=== PATIENT | male | born 1960 | race Caucasian/White ===

== ENCOUNTER 2018-12-19 12:01 | Day surgery (SDC) | payer OTHER, SELFPAY ==
--- NOTE | 2018-12-19 | PATH_ITS ---
[facility] Accession Number: [id number] . 01 Material submitted: . PART A: colon - POLYP AT 70, SPLENIC FLEXURE PART B: colon - POLYP AT 20, SIGMOID . 02 Diagnosis: A. Polyp at 70 cm, Splenic Flexure: Tubular adenoma; negative for high-grade dysplasia. . B. Polyp at 20 cm, Sigmoid: Tubular adenoma; negative for high-grade dysplasia. [facility]/12/22/2018 . 02 Electronically signed: . Saskia Camp MD, Pathologist NPI- [id number] . 01 Gross description: . Part A: POLYP AT 70, SPLENIC FLEXURE: Received in formalin is 1 fragment(s) of chris, soft tissue measuring 0.5 x 0.3 x 0.3 cm submitted entirely in 1 cassette(s) Part B: POLYP AT 20, SIGMOID: Received in formalin is 1 fragment(s) of chris, soft tissue measuring 1.0 x 0.6 x 0.7 cm which is inked, bisected and submitted entirely in 1 cassette(s) /CKI /CKI . 02 Pathologist provided ICD-10: K63.5 . 02 CPT . 097490, [id number] Performed at: 01 [facility] [address], [place], [place] [id number] MD Velasquez Redd MD Phone: [phone] Performed at: 02 [facility] [address] [place], [place] [id number] MD Tania Amador MD Phone: [phone]
[2018-12-19] MEDS: SODIUM CHLORIDE 0.9% 1,000 ML 200 ML IV (12:15)
[2018-12-19 12:16] VITALS: BP 136/85; PULSE 60; RESP 15; TEMP 36.6; O2SAT 96; BMI 29.2
--- NOTE | 2018-12-19 12:55 | PM.HP.1 ---
History of Present Illness Date Patient Seen: 12/19/18 Time Patient Seen: 12:55 Chief complaint: [id number] Narrative: Patient here for his 1st screening colonoscopy is asymptomatic with no melena or hematochezia has no abdominal pain. Patient History Social History household members: spouse Family & Social History Social History: household members spouse Meds Home Medications Medication Instructions Recorded Confirmed Type Lipitor 10 mg DAILY 12/19/18 12/19/18 History Prilosec OTC 20 mg DAILY 12/19/18 12/19/18 History Allergies Allergy/AdvReac Type Severity Reaction Status Date / Time No Known Drug Allergies Allergy Verified 12/19/18 12:15 Review of Systems Review of Systems All systems reviewed & are unremarkable except as noted in HPI and below Exam Vital Signs (past 8 hours): - 12/19/18 12:16 Temperature 97.9 F Pulse Rate 60 Respiratory Rate 15 Blood Pressure 136/85 Pulse Oximetry 96 Oxygen Delivery Method Room Air Narrative Exam Narrative: Patient is alert and oriented vital signs stable Lungs are clear with no rales or wheezes Heart regular rhythm no murmur Abdomen soft nontender no masses Rectal will be done at colonoscopy Assessment & Plan Assessment & Plan narrative: Patient is here for his 1st screening colonoscopy is asymptomatic he understands the nature of the procedure the risks of bleeding and perforation and agrees. He has no questions unanswered.
[2018-12-19] MEDS: fentaNYL 250 MCG/5 ML INJ IV (13:21)
[2018-12-19] MEDS: MIDAZOLAM 5 MG/5 ML VIAL IV (13:24)
--- NOTE | 2018-12-19 13:29 | PM.OP.ENDO ---
Operative Date/Time/Diagnoses Date of procedure: 12/19/18 Time of procedure: 13:29 Pre-op diagnosis: Screening colonoscopy Post-op diagnosis: other (Two polyps identified and removed 1 at 20 cm 1 at 70 cm) Procedure & Clinicians Study performed: Total colonoscopy to the cecum polypectomy x2 Same procedure as scheduled: Yes Surgeon: Noble Chambers Procedure Notes SCOAP/Timeout: Was done Procedure in detail: Patient was properly identified during surgical pause given a total of 5 mg of Versed and 200 micro g of fentanyl throughout the procedure which was very well tolerated. The flexible fiberoptic colonoscope was inserted transanally to the cecum. Patient has mild turenr diverticulosis. He also had 2 polyps 1 at 20 cm which was on a stalk and removed with a hot snare and retrieved. The other was a smaller polyp approximately 5 mm in diameter at 70 cm splenic flexure this was removed with cold forceps and submitted also there was no bleeding after the polypectomies the procedure was well tolerated Scope withdrawal time: 10 Sedation minutes: 20 Findings: polyp Specimen(s): other (Two polyps were sent 20 cm and 70 cm) Complications: none Recommendations: Colonscopy in 3 years Disposition: PACU
--- NOTE | 2018-12-19 13:32 | P.OP.ENDO_ITS ---
Operative Date/Time/Diagnoses Date of procedure: 12/19/18 Time of procedure: 13:29 Pre-op diagnosis: Screening colonoscopy Post-op diagnosis: other (Two polyps identified and removed 1 at 20 cm 1 at 70 cm) Procedure & Clinicians Study performed: Total colonoscopy to the cecum polypectomy x2 Same procedure as scheduled: Yes Surgeon: Noble Chambers Procedure Notes SCOAP/Timeout: Was done Procedure in detail: Patient was properly identified during surgical pause given a total of 5 mg of Versed and 200 micro g of fentanyl throughout the procedure which was very well tolerated. The flexible fiberoptic colonoscope was inserted transanally to the cecum. Patient has mild turner diverticulosis. He also had 2 polyps 1 at 20 cm which was on a stalk and removed with a hot snare and retrieved. The other was a smaller polyp approximately 5 mm in diameter at 70 cm splenic flexure this was removed with cold forceps and submitted also there was no bleeding after the polypectomies the procedure was well tolerated Scope withdrawal time: 10 Sedation minutes: 20 Findings: polyp Specimen(s): other (Two polyps were sent 20 cm and 70 cm) Complications: none Recommendations: Colonscopy in 3 years Disposition: PACU
[2018-12-19 13:35] VITALS: BP 123/81; PULSE 57; RESP 15; TEMP 36.8; O2SAT 97
--- NOTE | 2018-12-19 13:48 | SUR.PHASEII ---
Pt arrived from ENDO directly to phase II. Pt awake and alert. Denied pain. Abd soft. Spouse brought to bedside.
[2018-12-19 13:51] VITALS: BP 118/78; PULSE 52; RESP 12; TEMP 36.3; O2SAT 97
== END 2018-12-19 14:04 | disposition home or self-care (01) ==
PROVIDERS: PCP Student in an Organized Health Care Education/Training Program; Visit Provider Surgery
PROC: 0DJD8ZZ Inspection of Lower Intestinal Tract, Via Natural or Artificial Opening Endoscopic (ICD-10-PCS; CPT 45378; principal; 2018-12-19 13:00)
DX: Z12.11 Encounter for screening for malignant neoplasm of colon (principal); D12.3 Benign neoplasm of transverse colon; D12.5 Benign neoplasm of sigmoid colon; K57.30 Diverticulosis of large intestine without perforation or abscess without bleeding
CPT/HCPCS: 45385; 45380; 99152; J2250; J3010

== ENCOUNTER → 2020-08-17 17:10 | Outpatient (CLI) | payer OTHER, SELFPAY ==
[2020-08-17] MEDS: COVID-19 VACC #1, MRNA(MOD) 100 MCG/0.5 ML VIAL IM (17:23)
== END ==
PROVIDERS: PCP Student in an Organized Health Care Education/Training Program; Visit Provider Internal Medicine
DX: Z23 Encounter for immunization (principal)
CPT/HCPCS: 0011A; 91301

== ENCOUNTER → 2020-09-14 15:30 | Outpatient (CLI) | payer OTHER, SELFPAY ==
[2020-09-14] MEDS: COVID-19 VACC #2, MRNA(MOD) 100 MCG/0.5 ML VIAL IM (15:36)
== END ==
PROVIDERS: PCP Student in an Organized Health Care Education/Training Program; Visit Provider Internal Medicine
DX: Z23 Encounter for immunization (principal)
CPT/HCPCS: 0012A; 91301

== ENCOUNTER → 2022-04-16 10:00 | Outpatient (CLI) | payer OTHER, SELFPAY ==
[2022-04-16 13:41] LABS: Hemoglobin 14.3 g/dL (13.5-17.5); Mean Corpuscular Hemoglobin 31.5 PG (26-34); Mean Corpuscular Volume 92.7 fL (80-100); Platelet Count 283 X10^3/uL (150-400); Red Blood Cell Count 4.53 X10^6/uL (4.5-5.9); Red Cell Distribution Width 12.3 % (11.6-14.8); White Blood Cell Count 6.3 X10^3/uL (4.5-11.0)
[2022-04-16 16:52] LABS: HEMOLYSIS < 15 (0-50)
[2022-04-16 17:01] LABS: Alanine Aminotransferase 28 IU/L (<50); Albumin 4.5 g/dL (3.5-5.0); Albumin Globulin Ratio 1.5 (1.0-2.8); Alkaline Phosphatase 61 U/L (38-126); Aspartate Aminotransferase 21 IU/L (17-59); BUN Creatinine Ratio 14.1 (6-22); Bilirubin Total 0.7 mg/dL (0.2-1.3); Blood Urea Nitrogen 11 mg/dL (9-20); Calcium 9.2 mg/dL (8.4-10.2); Carbon Dioxide 25 mmol/L (22-32); Chloride 102 mmol/L (98-107); Cholesterol 156 mg/dL (140-199); Estimated Glomerular Filt Rate > 60 mL/min (>60); Globulin 3.1 g/dL (1.7-4.1); Glucose 101 mg/dL (80-110); HDL Cholesterol 52 mg/dL (40-60); LDL Cholesterol Calculated 87 mg/dL (<100); Potassium 4.1 mmol/L (3.4-5.1); Sodium 139 mmol/L (137-145); Total Protein 7.6 g/dL (6.3-8.2); Triglycerides 85 mg/dL (35-150)
[2022-04-17 16:28] LABS: Prostate Specific Antigen 0.836 ng/mL (0.10-4.00)
== END ==
PROVIDERS: PCP Internal Medicine; Referring Provider Internal Medicine; Visit Provider Internal Medicine
DX: E78.2 Mixed hyperlipidemia (principal); K21.9 Gastro-esophageal reflux disease without esophagitis; Z00.00 Encounter for general adult medical examination without abnormal findings
CPT/HCPCS: 36415; 80053; 80061; 84153; 84443; 85027

== ENCOUNTER 2022-07-24 19:05 | Emergency (ER) | payer OTHER, SELFPAY ==
--- NOTE | 2022-07-24 20:59 | PC.NURSE ---
RE: Delay in triage. After multiple calls, walks through waiting area to find pt to triage upon pt arrival, pt went to registration to make himself known.
[2022-07-24 21:04] VITALS: BP 190/92; PULSE 78; RESP 18; TEMP 36.4; O2SAT 98; BMI 31.7
--- NOTE | 2022-07-24 21:06 | DI.RAD.S_ITS ---
PROCEDURE: XR FINGER LT MIN 2V INDICATIONS: finger vs Ax TECHNIQUE: AP hand, 2 views of the 3rd digit acquired. COMPARISON: [facility], [place], XR FINGER(S) LT 2VW, 07/13/2016, 14:20. FINDINGS: Bones: There is a suspected minimally displaced fracture at the base of the 3rd middle phalanx. Prior amputation of the distal 3rd digit is redemonstrated. There is also deformity of the 2nd distal phalanx consistent sequelae of prior trauma. A lucency within the radial aspect of the base of the 2nd proximal phalanx is suggestive of a bony erosion. Soft tissues: There is soft tissue lacerations involving the 2nd and 3rd digits. No radiopaque foreign bodies. IMPRESSION: 1. Suspected minimally displaced fracture of the base of the 3rd middle phalanx. 2. Prior distal amputation of the distal 3rd digit and posttraumatic changes of the distal 2nd digit redemonstrated. 3. Possible small erosion at the base of the 2nd proximal phalanx. Dictated by: Velasquez Diaz M.D. on 07/24/2022 at 21:48 Approved by: Velasquez Diaz M.D. on 07/24/2022 at 21:55
[2022-07-24] MEDS: TET,DIPH,PERTUSS(ACELL),VAC/PF 0.5 ML SYRINGE IM (21:31)
[2022-07-24] MEDS: HYDROCODONE/ACET 5/325 TABLET 1 TAB PO (23:06)
--- NOTE | 2022-07-25 01:04 | ED_ITS ---
HPI - Extremity Injury (Upper) General Chief Complaint: Extremity Injury, Upper Stated Complaint: lt middle finger cut with axe Time Seen by Provider: 07/25/22 00:52 Source: patient Mode of arrival: Ambulatory History of Present Illness HPI narrative: Patient is a 61-year-old male who presents with left middle finger laceration. He was chopping wood for the fire with an Axe, head of the act fell off and he cut his finger. He previously cut finger with a table saw multiple years ago. He is right-hand dominant. He is not inhalation medication. Denies numbness tingling or weakness. Related Data Home Medications Medication Instructions Recorded Confirmed ibuprofen 200 mg tablet 400 mg PO QID PRN pain 04/16/22 04/16/22 Previous Rx's Medication Instructions Recorded atorvastatin 10 mg tablet 10 mg PO DAILY #90 tabs 04/16/22 omeprazole 20 mg capsule,delayed 20 mg PO DAILY #90 caps 04/16/22 release hydrocodone 5 mg-acetaminophen 325 1 tab PO Q6H PRN pain #10 tabs 07/25/22 mg tablet Allergies Allergy/AdvReac Type Severity Reaction Status Date / Time No Known Drug Allergies Allergy Verified 04/16/22 07:43 Review of Systems Review of Systems ROS Unobtainable: All systems reviewed & are unremarkable except as noted in HPI and below Patient History Medical History (Updated 07/25/22 @ 02:07 by Sandy Ordaz DO) Asymptomatic varicose veins GERD without esophagitis History of colonic polyps Mixed hyperlipidemia Obesity (BMI 30.0-34.9) Plantar fasciitis 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 CARDIOVASCULAR: peripheral pulses in tact, cap refill <2 sec RESPIRATORY: No respiratory distress, speaks in full sentences without difficulty EXTREMITIES: Normal range of motion, no clubbing or edema. Neurovascularly intact NEUROLOGICAL: Cranial nerves II through XII grossly intact. Normal gait and speech. SKIN: Left middle finger laceration 7 cm flap like laceration dorsal side, 2 cm laceration palmar side Procedures Laceration Repair Laceration 1: Site: hand (middle finger dorsal) Side (If applicable): left Size (cm): 7 Description: linear Depth: simple, single layer Local Anesthetic: lidocaine 1% Amount of anesthesia used (mL): 5 Pre-repair: wound explored, irrigated extensively and deep structures intact Skin layer closed with: nylon Skin layer suture size: 5-0 Number of sutures: 8 Technique: simple, interrupted Subcutaneous layer closed with: vicryl Subcutaneous layer suture size: 5-0 Number of sutures: 1 Technique: simple, interrupted Laceration 2: Site: hand (middle finger hawthoren) Side (If applicable): left Size (cm): 2 Description: linear Depth: simple, single layer Local Anesthetic: lidocaine 1% Amount of anesthesia used (mL): 4 Pre-repair: wound explored, irrigated extensively and deep structures intact Skin layer closed with: nylon Skin layer suture size: 5-0 Number of sutures: 5 Technique: simple, interrupted Course Orders Ordered: Discontinued Medications Hydrocodone Bitart/Acetaminophen (Hydrocodone/Acet 5/325 Tablet) 1 tab PO NOW ONE Stop: 07/24/22 23:03 Last Admin: 07/24/22 23:06 Dose: 1 tab Documented By: OMAR Hydrocodone Bitart/Acetaminophen (Hydrocodone/Acet 5/325 Prepack) 1 bottle MISC SEEINSTR ONE Stop: 07/25/22 02:09 Last Admin: 07/25/22 02:13 Dose: 1 bottle Documented By: OMAR Diphtheria/Tetanus/Acell Pertussis (Tet,Diph,Pertuss(Acell),Vac/Pf 0.5 Ml Syringe) 0.5 ml IM .ONCE ONE Stop: 07/24/22 21:18 Last Admin: 07/24/22 21:31 Dose: 0.5 ml Documented By: OMAR Lidocaine HCl (Lidocaine 2% Inj Mdv 20ml) 1 ml SUBCUT NOW ONE Stop: 07/25/22 01:05 Last Admin: 07/25/22 01:10 Dose: Not Given Documented By: OMAR Lidocaine HCl (Lidocaine 2% Inj Sdv 5ml) 5 ml INJ INTRA-OP ONE Stop: 07/25/22 01:09 Last Admin: 07/25/22 01:11 Dose: 5 ml Documented By: OMAR Lidocaine HCl (Lidocaine 2% Inj Sdv 5ml) 5 ml INJ INTRA-OP ONE Stop: 07/25/22 01:37 Last Admin: 07/25/22 02:13 Dose: 5 ml Documented By: OMAR Vital Signs Vital signs: Vital Signs - 8 hr 07/25/22 02:19 Pulse Rate 76 Respiratory Rate 18 Blood Pressure 182/88 H Pulse Oximetry 98 Oxygen Delivery Method Room Air MDM - Extremity Injury (Upper) Imaging Data Extremity x-ray #1: Radiologist's Impression: PROCEDURE:? XR FINGER LT MIN 2V ? INDICATIONS:? finger vs Ax ? TECHNIQUE:? AP hand, 2 views of the 3rd digit acquired.? ? COMPARISON:? [facility] [place], [place], XR FINGER(S) LT 2VW, 07/13/2016, 14:20. ? FINDINGS:? ? Bones:? There is a suspected minimally displaced fracture at the base of the 3rd middle phalanx.? Prior amputation of the distal 3rd digit is redemonstrated.? There is also deformity of the 2nd distal phalanx consistent sequelae of prior trauma.? A lucency within the radial aspect of the base of the 2nd proximal phalanx is suggestive of a bony erosion. ? Soft tissues:? There is soft tissue lacerations involving the 2nd and 3rd digits.? No radiopaque foreign bodies. ? IMPRESSION:? ? 1. Suspected minimally displaced fracture of the base of the 3rd middle phalanx. ? 2. Prior distal amputation of the distal 3rd digit and posttraumatic changes of the distal 2nd digit redemonstrated. ? 3. Possible small erosion at the base of the 2nd proximal phalanx. ? ? Dictated by: Velasquez Diaz M.D. on 07/24/2022 at 21:48 ? ? Approved by: Velasquez Diaz M.D. on 07/24/2022 at 21: MDM Narrative Medical decision making narrative: 61-year-old male who presents with left middle finger laceration secondary to Axe. He is actually found have 2 lacerations 1 on each side of the finger. They are both easily sutured. Patient tolerated procedure well. X-ray was suggestive of minimally displaced fracture at middle phalanx. Discharge Plan Departure Patient Disposition: Home Clinical Impression: Laceration of left middle finger Instructions: DI for Laceration Repair -- Complex Suture Activity Restrictions/Additional Instructions: *You have been diagnosed with left middle finger laceration, possible fracture as well *What to do: Keep finger clean and dry with soap and water may apply antibiotic ointment 1-2 times daily. Have sutures removed in about 7 days *Continue to take medications as directed [place] 1 tablet every 6 hours if needed for severe pain *Follow up with your primary care provider in 2-3 days or call [phone] *Return to ER if you should have increasing pain swelling redness or any new, worsening or concerning symptoms CONTROLLED SUBSTANCE DISCHARGE (Narcotoic/benzodiazepine/Flexeril/Phenergan) 1. You have been prescribed narcotic medications, it does have acetaminophen/Tylenol/paracetamol in it, DO NOT TAKE MORE THAN 4,00mg in 24 hours of Tylenol. TRAMADOL DOES NOT CONTAIN TYLENOL 2. Please understand that we cannot provide further refills of narcotics, benzodiazepines or controlled substances through the ED and her pain management will need to be through your provider. 3. While on these medications you cannot drive or operate heavy machinery. 4. You cannot sign legal documents or perform any duties such as this. 5. As long as you're taking opiate pain medications he should also be taking a stool softener such as Colace, Dulcolax, MiraLAX or prune juice, to help avoid constipation. Prescriptions: New hydrocodone-acetaminophen 5-325 mg tablet 1 tab PO Q6H PRN (Reason: pain) Qty: 10 0RF No Action ibuprofen 200 mg tablet 400 mg PO QID PRN (Reason: pain) atorvastatin 10 mg tablet 10 mg PO DAILY Qty: 90 3RF omeprazole 20 mg capsule,delayed release(DR/EC) 20 mg PO DAILY Qty: 90 3RF Referrals: Moses Quezada MD [Primary Care Provider] - Stand Alone Forms: Patient Portal/API
[2022-07-25] MEDS: LIDOCAINE 2% INJ SDV 5ML 5 ML INJ ×2 (01:11→02:13)
[2022-07-25] MEDS: HYDROCODONE/ACET 5/325 PREPACK 1 BOTTLE MISC (02:13)
--- NOTE | 2022-07-25 02:17 | PC.NURSE ---
finger dressed with xeroform, dia and splint applied
[2022-07-25 02:19] VITALS: BP 182/88; PULSE 76; RESP 18; O2SAT 98
== END 2022-07-25 02:20 | disposition home or self-care (01) ==
PROVIDERS: Emergency Provider Emergency Medicine; PCP Internal Medicine
DX: S61.213A Laceration without foreign body of left middle finger without damage to nail, initial encounter (principal); W45.8XXA Other foreign body or object entering through skin, initial encounter; Z23 Encounter for immunization
CPT/HCPCS: 12004; 73140; 90471; 99283; 99284; 90715

== ENCOUNTER → 2022-08-21 10:24 | Outpatient (CLI) | payer OTHER, SELFPAY ==
[2022-08-21 11:26] LABS: Add Manual Diff / Slide Review NO; Basophils Absolute Auto 100 /uL (0-100); Basophils Percent Auto 0.8 % (0-2); Eosinophils Absolute Auto 200 /uL (0-450); Eosinophils Percent Auto 2.2 % (2-4); Hematocrit 41.1 % (41-53); Lymphocytes Absolute Auto 1500 /uL (1100-4500); Lymphocytes Percent Auto 21.4 % (25-40); Mean Corpuscular HGB Conc 34.1 % (30-36); Mean Corpuscular Hemoglobin 31.8 PG (26-34); Mean Corpuscular Volume 93.1 fL (80-100); Monocytes Absolute Auto 600 /uL (0-900); Monocytes Percent Auto 8.4 % (3-14); Neutrophils Absolute Auto 4700 /uL (1500-7000); Neutrophils Percent Auto 67.2 % (50-75); Platelet Count 265 X10^3/uL (150-400); Red Blood Cell Count 4.41 X10^6/uL (4.5-5.9); Red Cell Distribution Width 13.2 % (11.6-14.8)
[2022-08-21 11:48] LABS: Erythrocyte Sedimentation Rate 46 MM/HR (0-15)
[2022-08-21 11:59] LABS: Alanine Aminotransferase 30 IU/L (<50); Albumin 4.4 g/dL (3.5-5.0); Albumin Globulin Ratio 1.3 (1.0-2.8); Alkaline Phosphatase 58 U/L (38-126); Aspartate Aminotransferase 24 IU/L (17-59); BUN Creatinine Ratio 22.1 (6-22); Bilirubin Total 0.5 mg/dL (0.2-1.3); Blood Urea Nitrogen 15 mg/dL (9-20); Calcium 9.2 mg/dL (8.4-10.2); Carbon Dioxide 25 mmol/L (22-32); Chloride 105 mmol/L (98-107); Estimated Glomerular Filt Rate > 60 mL/min (>60); Globulin 3.3 g/dL (1.7-4.1); Glucose 102 mg/dL (80-110); HEMOLYSIS < 15 (0-50); Potassium 4.2 mmol/L (3.4-5.1); Sodium 138 mmol/L (137-145); Total Protein 7.7 g/dL (6.3-8.2)
== END ==
PROVIDERS: PCP Internal Medicine; Referring Provider Family Medicine; Visit Provider Family Medicine
DX: H57.11 Ocular pain, right eye (principal)
CPT/HCPCS: 36415; 80053; 85025; 85651

== ENCOUNTER → 2024-05-04 06:39 | Outpatient (CLI) | payer OTHER, SELFPAY ==
[2024-05-04 07:34] LABS: Hematocrit 43.1 % (41-53); Hemoglobin 14.4 g/dL (13.5-17.5); Mean Corpuscular HGB Conc 33.4 % (30-36); Mean Corpuscular Hemoglobin 32.1 PG (26-34); Mean Corpuscular Volume 96.1 fL (80-100); Platelet Count 299 X10^3/uL (150-400); Red Blood Cell Count 4.49 X10^6/uL (4.5-5.9); Red Cell Distribution Width 12.8 % (11.6-14.8); White Blood Cell Count 6.1 X10^3/uL (4.5-11.0)
[2024-05-04 08:15] LABS: Alanine Aminotransferase 46 IU/L (<50); Albumin 4.4 g/dL (3.5-5.0); Albumin Globulin Ratio 1.8 (1.0-2.8); Alkaline Phosphatase 60 U/L (38-126); Aspartate Aminotransferase 30 IU/L (17-59); BUN Creatinine Ratio 17.4 (6-22); Bilirubin Total 0.8 mg/dL (0.2-1.3); Blood Urea Nitrogen 15 mg/dL (9-20); Calcium 9.6 mg/dL (8.4-10.2); Carbon Dioxide 26 mmol/L (22-32); Chloride 105 mmol/L (98-107); Cholesterol 213 mg/dL (140-199); Estimated Glomerular Filt Rate > 60 mL/min (>60); Globulin 2.5 g/dL (1.7-4.1); Glucose 138 mg/dL (80-110); HDL Cholesterol 68 mg/dL (40-60); HEMOLYSIS < 15 (0-50); LDL Cholesterol Calculated 128 mg/dL (<100); Potassium 4.7 mmol/L (3.4-5.1); Sodium 138 mmol/L (137-145); Total Protein 6.9 g/dL (6.3-8.2); Triglycerides 83 mg/dL (35-150)
[2024-05-04 08:45] LABS: Prostate Specific Antigen Scrn 0.904 ng/mL (0.1-4.0)
[2024-05-04 08:47] LABS: TSH w/ Reflex to FT4 2.95 uIU/mL (0.47-4.68)
== END ==
LOC: LAB 06:40
PROVIDERS: PCP Internal Medicine; Referring Provider Internal Medicine; Visit Provider Internal Medicine
DX: Z00.00 Encounter for general adult medical examination without abnormal findings (principal); Z12.5 Encounter for screening for malignant neoplasm of prostate; E78.2 Mixed hyperlipidemia; I10 Essential (primary) hypertension
CPT/HCPCS: 36415; 80053; 80061; 84443; 85027; G0103

== ENCOUNTER → 2025-05-03 08:38 | Outpatient (CLI) | payer OTHER, SELFPAY ==
[2025-05-03 10:16] LABS: Blood Urea Nitrogen 14 mg/dL (9-20); Calcium 9.6 mg/dL (8.4-10.2); Carbon Dioxide 28 mmol/L (22-32); Chloride 106 mmol/L (98-107); Cholesterol 231 mg/dL (140-199); Estimated Glomerular Filt Rate > 60 mL/min (>60); Glucose 100 mg/dL (70-99); HDL Cholesterol 72 mg/dL (40-60); HEMOLYSIS < 15 (0-50); Potassium 4.2 mmol/L (3.4-5.1); Sodium 142 mmol/L (137-145); Triglycerides 142 mg/dL (35-150)
== END ==
PROVIDERS: PCP Internal Medicine; Referring Provider Internal Medicine; Visit Provider Internal Medicine
DX: Z12.5 Encounter for screening for malignant neoplasm of prostate (principal); I10 Essential (primary) hypertension; E78.2 Mixed hyperlipidemia
CPT/HCPCS: 36415; 80048; 80061; 84450; G0103